=== PATIENT | male | born 1940 | race Caucasian/White ===

== ENCOUNTER 2017-06-23 01:20 | Inpatient (IN) | payer OTHER, MEDICARE ==
[~2017-06-23] VITALS: Ht 167.6 cm; Wt 78.5 kg
[~2017-06-23 01:20] MED LIST: ASPIRIN EC81 M1 PO; ATENOLOL50 M1 PO; ATORVASTATIN CA40 M1 PO; GABAPENTIN300 M2 PO; LOTREL 5-20 MG1 EACH PO; MORPHINE SULFAT30 M7 PO; TERAZOSIN HCL5 M1 PO
--- NOTE | 2017-06-23 11:40 | Admission Core Measures ---
Admission Meds I reviewed the following Meds: Current Medications Sig/Jayme Start time Last Medication Dose Stop Time Status Admin Amlodipine Besylate 5 MG DAILY 06/24 1000 UNVr (Norvasc) Aspirin Buffered 81 MG DAILY 06/23 1129 AC (Ecotrin) Atenolol 50 MG DAILY 06/24 1000 UNVr (Tenormin) Atorvastatin Calcium 40 MG DAILY 06/24 1000 UNVr (Lipitor) Doxazosin Mesylate 2 MG AT BEDTIME 06/23 2200 UNVr (Cardura) Gabapentin 300 MG AT BEDTIME 06/23 2200 UNVr (Neurontin) Morphine Sulfate 30 MG BID 06/24 1000 UNVr (Ms Contin) Acute Coronary Syndrome Inclusion Criteria ACS Diagnosis No Inpatient Core Measures LDL Reminder: If No, please order W/I first 24hr of stay Congestive Heart Failure Inclusion Criteria CHF Diagnosis No Cerebrovascular accident Inclusion Criteria CVA/TIA Diagnosis No Inpatient Core Measures Bedside Swallow Eval Reminder: If BSE failed, place ST order Antithrombotic Reminder: Order Antithrombotic Medication by end of day 2 Antithrombotic Reminder: Document Reason Antithrombotic Not ordered by end of day 2 AFIB/Flutter Reminder: If Present, add to problem list AFIB/Flutter Reminder: Order Anticoag Medication for pts with AFIB/Flutter Atherosclerosis Reminder: If Present, add to problem list LDL Reminder: If No, please order W/I first 24hr of stay PT Order Reminder: If No, please order Venous thromboembolism Inpatient Core Measures VTE Risk Factors: Age > 40, Surgery No [facility] VTE prophylaxis d/t No contraindications No VTE Pharm Prophylaxis d/t No contraindications Inclusion Criteria - Per Current guidelines, there needs to be overlap - treatment for the first 5 days of Warfarin therapy. - Parenteral Anticoagulation (IV or SC) needs to be - given along with Warfarin therapy. VTE Diagnosis No VTE Type NONE VTE Confirmed by (Test) NONE Problem List As ranked by this Provider includes Assessment & Plan 1. Carotid stenosis, right HOME MEDS Home Med List Amlodipine Besylate/Benazepril (Lotrel 5-20 MG Capsule) 5 MG-20 MG CAPSULE 1 CAP PO DAILY HTN (Reported) Aspirin (Ecotrin*) 81 MG TABLET.DR 1 TAB PO DAILY PROPHO (Reported) Atenolol 50 MG TABLET 1 TAB PO DAILY HTN (Reported) Atorvastatin Calcium 40 MG TABLET 1 TAB PO DAILY CJOLESTEROL (Reported) Gabapentin 300 MG CAPSULE 1 CAP PO NIGHTLY NEUROPATHY (Reported) Morphine Sulfate 30 MG TABLET 1 TAB PO DAILY NEUROPATHY (Reported) Terazosin HCl 5 MG CAPSULE 1 CAP PO QPM PROSTATE (Reported)
--- NOTE | 2017-06-23 11:42 | Operative Report ---
Operative/Inv Procedure Report Surgery Date: 06/23/17 Name of Procedure: Right carotid endarterectomy with bovine patch angioplasty Pre-Operative Diagnosis: Asymptomatic high grade JOSE Post-Operative Diagnosis: same Estimated Blood Loss: less than 50ml Surgeon/Maintenance And Repair Worker: RAFFI CANDELARIO,JESU HERMAN MD, HARVINDER (ASST.) Anesthesia: moderate sedation, block Complications: None Condition: Stable to PACU Operative Indication: High grade JOSE on right Operative/Procedure Note Note: Pt. brought to OR. Laid supine on table and time out performed. Incision made over anterior border of sternocleidomastoid after local and cervical block placed. Sharp dissection to carotid sheath. The ECA,CCA and ICA were all controlled and heaparin was given. Artery opened and plaque removed. Plaque noed to be friable. The plaque was tacked distally and proximally. The artery was then repaired with a running 6-0 prolene suture and a bovine pericardial patch. Occluding clamps removed. Bleeding controlled with prolene x 3. Gel foam and thrombin and flooseal plaved on artery. Wound closed in layers with skin greg for the skin. Pt. tolerated procedure well. Sponge, needle and instrument counts were correct. Pt. awake and intact throughout duration of procedure. Additional Comments: Please note a second surgeon state tested nursing assistant was required due to the lack of an adequate asssitant/resident and the comn\plexity of the repair.
--- NOTE | 2017-06-23 14:41 | NUR ---
RECIEVED PT FROM PACU AT 1255, A/O, MOVES ALL EXTREMTIES, PULSES X 4 DIMINISHED. PAIN 0/10. SB-SR 42-60, ASYMTOPATIC. NOTIFIED SURGICAL PA BRANDY SANCHEZ, BP 153/69 AUTO, 140/60 MANUALLY AND 161/65 VIA CRISTINA TO L WRIST. PT LUNGS SOUND CLEAR AND PT SATING 97-98% ON 2L. PT HAS SOFT ABDOMEN W +BS. -N/V. STARTED ON CLR LIQ DIET, TOLERATING WELL, NO DIFFICULTY SWELLING.PT HAS A DRESSING TO R SIDE OF NECK W ICE PACK AND DRESSING WITH MINIMAL BLOODY DRAINAGE. NS AT 75ML/HR RUNNING THROUGH PIV IN LAC #20. PT GIVEN ASP 81 MG PO. PT ORIENTED TO ROOM, CALL [facility] SYSTEM, POC WELL FAMILY PRESENT. PT VERBALIZES UNDERSTANDING AND OFFERS NO COMPLAINTS.
--- NOTE | 2017-06-23 14:44 | PN- Student ---
ANNA BRYANT 06/23/17 1406: Subjective Subjective: POST-OP DAY #0 Pt is a 76 y/o male who is POD #0 of a right carotid endarterectomy with bovine patch angioplasty on 06/23 who is doing well with minor complaints of pain, and minor numbess around incision site that is to be expected after administration of local anesthetic. He had an episode of bradycardia with a HR in the 40's post -operatively, but has since resolved. Pt denies any nausea, vomiting, or dizziness. He is tolerating a clear diet. An ice pack is resting on the incision site to prevent swelling and alleviate pain. - ambulation. - flatus. ROS Neuro: Denies any headaches or dizziness. HEENT: Denies any changes in vision, states that he is hard of hearing. Respiratory: Denies any shortness of breath or difficulty breathing. Cardiac: Denies any chest pain or palpitations. GI: Denies any abdominal pain or cramping, denies any N/V. 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 Objective Objective: Vital Signs Temperature: BP: 168/60 mmHg HR: 55 RR: 15 Pulse Oxometry: 98% on nasal cannula 2.0 L. General: Alert & oriented x3. He has an apropriate mood & affect. Neuro: Cranial nerves are intact and symmetrical. HEENT: Pupils are equal & reactive bilaterally. Trachea is midline and elevated with agglutination. Neck: Bandage on right anterior aspect of neck is is c/d/i with no erythema surrounding. Pt states minor numbness around his neck, but denies any pain. Full range of motion is noted on flexion, extension, and rotation with minor soreness but no pain. Respiratory: CABL. No wheezes, rhales, or ronchi. Cardiac: S1S1. Regular rate, normal rhythm, no murmurs, rubs, or gallops. No edema present. GI: Abdomen is soft, nontender, & nondistended. MSK: Plantarflexion and dorsiflexion strength is 5/5, with no posterior calf pain when palpated. Notes minor neuropathy on distal aspect of feet BL that was previously diagnosed before the procedure. Grant Manager strength is a 5/5 bilaterally. Assessment/Plan Assessment: This is a 76 year old man who is POD #0 of a right carotid endarterectomy with bovine patch angioplasty on 06/23/17 who is doing well with minor complaints of pain, and minor numbess around incision site that is to be expected after local anesthetic administration. Plan: - Follow HR & BP to address possible bradycardia after procedure. - Continue pain regimen. - Administer aspirin 325 mg for DVT prophylaxis. - Resume beta negrito pharmacotherapy from pre-operative medication list. - Advance diet as tolerated. - Promote use of incentive spirometer. - Promote ambulation. - Will discuss with Dr. Banda. LEILA GAN,JEYSON 06/23/17 1640: Objective Results Results: Microbiology 06/23 1300 UPPER RESP: Surveillance Culture - RECD 06/23 1300 GI: Surveillance Culture - RECD Resident Review Statement Other Findings: Agree w above student note. Pt without complaints. Denies pain/n/v/cp/sob/neurological deficits. Hungry. bradycardic to 40s (now low 60s) and hypertensive (190s, 200) postop. Did not take antihtn meds this am other than his BB PE: no focal neuro deficits. face symmetric without droop, moves all 4 extremities- strength 5/5 and equal bilaterally. gross sensate intact 4 extremities. no speech changes. incision intact, some erythema around dressing- likely due to ice pack on area. slightly ttp. minimal swelling. A/P: POD0 sp R CEA- with htn and bradycardia. -continue telemetry in icu - home dose lisinopril now. may need further meds if worsens. - hh diet as tolerated. - hl ivf. dc o2. - will harlan attending
[2017-06-23 16:00] VITALS: BP 170/80
--- NOTE | 2017-06-23 21:25 | NUR ---
PT'S AWAKE AND ALERT. NOW REPORTING SORENESS AT SURGICAL SITE AND GOING DOWN RIGHT SIDE OF HIS BACK. PATIENT STATES, "IT'S SORE. NOT PAINFUL". B/P REMAINS IN THE 170 TO 180 AREA. MD STATES TO IGNORE THE CRISTINA READINGS AND WATCH THE CUFF READINGS. CALL MD IF BP GOES OVER 200. PT HAS BEEN O ROOM AIR FOR 5 HOURS. DESATING WHEN SLEEPING. 2L/NC PLACED FOR SLEEP.
[2017-06-24] VITALS: BP 160/60
--- NOTE | 2017-06-24 00:15 | NUR ---
PT ALERT AND ORIENTED, DENIES PAIN. NSR 60'S, MANUAL BP 160/60. LEFT RADIAL CRISTINA IN PLACE. SATURATION ON 2L O2, 100%. LUNGD SOUND CLEAR. ABDOMEN SOFT, NORMOACTIVE BS. MOVING ALL HIS EXTREMETIES. RIGHT NECK DRESSING DRY AND INTACT.
--- NOTE | 2017-06-24 06:01 | PN- Vascular Surgery ---
Subjective Subjective: feeling well. some soreness at incision, though pain well controlled. no extremity weakness or speech changes. Denies pain/n/v/cp/sob. HR and BP improved Objective Vital Signs and I&Os Vital Signs HR: now 55, range 50s-60s postop BP: now 154/66, SBP range 230s-180s postop Date Time Temp Pulse Resp B/P B/P Pulse O2 O2 Flow FiO2 Mean Ox Delivery Rate 06/24 0400 100 Nasal 2.0L Cannula 06/24 0000 100 Nasal 2.0L Cannula 06/24 0000 97.2 61 20 160/60 100 Nasal 2.0L Cannula 06/23 1726 67.0 56 22 184/70 06/23 1600 100 Nasal 2.0L Cannula 06/23 1600 96.6 56 18 170/80 100 Nasal 2.0L Cannula 06/23 1316 98 Nasal 2.0L Cannula Intake & Output UO: 400/cage shift manager, 1300 evening shift 06/24 0800 06/24 0000 06/23 1600 06/23 0800 06/23 0000 06/22 1600 Intake Total 915 1360 Output Total 1300 400 Balance -385 960 Intake, IV 225 1000 Intake, Oral 690 360 Number 0 Bowel Movements Output, Urine 1300 400 Patient 173 lb Weight Weight Reported by Patient Measurement Method Physical Exam: GEN: NAD CARD: s1s2 RRR PULM: CTAB NEURO: no focal neuro deficits. face symmetric without droop, moves all 4 extremities- strength 5/5 and equal bilaterally. gross sensate intact 4 extremities. no speech changes. NECK: dressing mild serosang staining, otherwise intact, mild eccymosis, slightly ttp, minimal swelling. Assessment/Plan Assessment/Plan A: POD1 sp R CEA- with postop htn and bradycardia, improved, with minimal postop discomfort and no neurological deficits. P: - continue home meds - dc O2 - hh diet as tolerated. - dc planning - will dw attending Core Measures/Miscellaneous Venous Thromboembolism VTE Risk Factors: Surgery VTE Contraindications: No Contraindications VTE Diagnosis: No VTE Type: NONE VTE Confirmed by (Test): NONE Beta Fabiano Is Beta Fabiano a Home Med? Yes If Yes, Was This Ordered Today? Yes Antibiotics Is Patient on Antibiotics? No
--- NOTE | 2017-06-24 06:56 | Patient Discharge Instructions ---
Discharge Instructions General Discharge Information You were seen/treated for: Asymptomatic high grade JOSE You had these procedures: Right carotid endarterectomy with bovine patch angioplasty (06/23/17) Watch for these problems: fever>101.3, increased pain, redness/swelling/drainage Call Surgeon to remove: Iron Belt No bath, but you may shower: Yes Other wound care: ok to shower. keep incisions clean & dry. Diet Continue normal diet: Yes Recommended Diet: Heart Healthy Activity Full Activity/No Limits: Yes Activity Self Limited: Yes Pounds, do NOT lift more than: 10 Other activity limits: no heavy lifting. no strenuous activity. Acute Coronary Syndrome Inclusion Criteria At DC or during hospital stay patient has or had the following: ACS DIAGNOSIS No Discharge Core Measures Meds if any: Prescribed or Continued at Discharge Meds if any: NOT Prescribed or Continued at Discharge Congestive Heart Failure Inclusion Criteria At DC or during hospital stay patient has or had the following: CHF DIAGNOSIS No Discharge Core Measures Meds if any: Prescribed or Continued at Discharge Meds if any: NOT Prescribed or Continued at Discharge Cerebrovascular accident Inclusion Criteria At DC or during hospital stay patient has or had the following: CVA/TIA Diagnosis No Discharge Core Measures Meds if any: Prescribed or Continued at Discharge Meds if any: NOT Prescribed or Continued at Discharge Venous thromboembolism Inclusion Criteria VTE Diagnosis No VTE Type NONE VTE Confirmed by (Test) NONE Discharge Core Measures - Per Current guidelines, there needs to be overlap - treatment for the first 5 days of Warfarin therapy. - If discharged on Warfarin prior to 5 days of - overlap therapy, the patient will need to be - assessed for post discharge needs including - *Post discharge parental anticoagulation - *Warfarin and/or parental anticoagulation education - *Follow up date to check INR post discharge At least 5 days overlap therapy as Inpatient No Meds if any: Prescribed or Continued at Discharge Note: Overlap Therapy is Warfarin and Anticoagulant Meds if any: NOT Prescribed or Continued at Discharge
[2017-06-24] MEDS ORDERED: TYLENOL EXTRA500 M2 PO (07:35)
--- NOTE | 2017-06-24 07:42 | Surg Short-stay <48hrs Dis Sum ---
Visit Information Visit Dates Admission Date: 06/23/17 Discharge Date: 06/24/17 Surgical Short Stay DC Summary Admission Diagnosis: Asymptomatic high grade JOSE Final Diagnosis: same as above, s/p Surgery Date: 06/23/17 Name of Procedure: Right carotid endarterectomy with bovine patch angioplasty Procedure(s): Surgery Date: 06/23/17 Name of Procedure: Right carotid endarterectomy with bovine patch angioplasty Summary/Significant Findings: Electively scheduled right carotid endarterectomy with bovine patch angioplasty on 06/23/17 for asymptomatic high grade JOSE by , which went routinely. Monitored in ICU overnight for continue blood pressure monitoring via a-line. Mild bradycardia overnight, which was asymptomatic, and improved by the morning. Home blood pressure medications continued post-op day #1. Diet advanced as tolerated. Stable for discharge to home on post-op day#1. Condition at Discharge: stable Discharge Disposition: home or self care Discharge instructions provided to patient/family: Yes Post discharge follow-up plan: call to schedule follow up visit within one week of discharge with will need greg removed in 7-10 days
[2017-06-24 08:00] VITALS: BP 168/66
--- NOTE | 2017-06-24 09:03 | NUR ---
PT A/O, VS: 68 NSR 168/66 RA 97% 97.8. PEDERSON, PULSES x 4. NO NEURO DEFECITS NOTED. R NECK SURGICAL SITE HAS MINIMAL SWELLING, DRESSING C/D/I. PT REPORTS MINIMAL DISCOMFORT, DENYING NEED FOR PAIN MEDS. TOLERATING REGULAR DIET. CRISTINA ALEXANDRA'D PER SURGICAL PA. DC ORDER PLACED. TUBING MILL SETTER NOTIFIED.
[2017-06-24 09:36] VITALS: BP 150/73
--- NOTE | 2017-06-24 11:42 | NUR ---
A/O, VSS. ROOM AIR. AMBULATED UNIT W SUPERVISION. HR MAINTAINED IN 70S-80S, O2 SAT STABLE. BP AT 1100 - 110'S. TOLERATING PO. VOIDING QS. DC ORDER IN. CLARIFIED WITH NATHANAEL ROONEY THAT ALL INTERVENTIONS COMPLETE AND PT WAS OK TO DC HSC. SURGICAL DRESSING CHANGED. SURGICAL SITE LOOKS WNL, CLEAN AND DRY WITH KENN, NO REDDNES OR DRAINAGE, NO WARMTH, MINOR DISCOMFORT, PAIN < 3. PT STATES IS TOLERABLE. PIV'S X 2 DC'D. PT AND SIGNIFICANT OTHER EDUCATED ON DISCHARGE INSTRUCTIONS AND FOLLOW UP NEEDED FOR STAPLE REMOVEAL. PT ABLE TO DRESS HIMSELF AND WALK INDEPENDENTLY. PT DC'D VIA WHEELCHAIR TO LOBBY.
== END 2017-06-24 11:35 | DRG 39 ==
LOC: SDA 01:20 → CRI 01:20 → ENRESERV 11:58 → CRI 12:38 → ENTRNSPT 12:38 → EDTRNSPTSTS 12:43 → EDTRNSPT 12:43 → CMPTRNSPT 13:24 → CRI 06-24 11:35
PROVIDERS: ADMIT Surgery Vascular Surgery
PROC: 03CY0ZZ Extirpation of Matter from Upper Artery, Open Approach (ICD-10-PCS; principal; 2017-06-23)
PROC: 03UH0KZ Supplement Right Common Carotid Artery with Nonautologous Tissue Substitute, Open Approach (ICD-10-PCS; 2017-06-23)
DX: I65.21 Occlusion and stenosis of right carotid artery (principal); G62.9 Polyneuropathy, unspecified; R00.1 Bradycardia, unspecified; I10 Essential (primary) hypertension; Z85.72 Personal history of non-Hodgkin lymphomas; N40.0 Benign prostatic hyperplasia without lower urinary tract symptoms; I25.10 Atherosclerotic heart disease of native coronary artery without angina pectoris
CPT/HCPCS: CCU; C9399; J0131; J1644; J2405; J2550; J3490

== ENCOUNTER 2018-07-05 04:21 | Inpatient (IN) | payer OTHER, MEDICARE ==
[~2018-07-05] VITALS: Ht 167.6 cm; Wt 80.3 kg
[~2018-07-05 04:21] MED LIST changes: +TYLENOL EXTRA500 M2 PO
--- NOTE | 2018-07-05 05:06 | ED GI/GU/ABDOMINAL COMPLAINT ---
History of Present Illness General Chief Complaint: Abdominal Pain/Flank Pain Stated Complaint: "UPPER ABD PAIN SINCE 1999 YESTERDAY RADIATE BACK" Source: patient, family, old records Exam Limitations: no limitations Vital Signs & Intake/Output Vital Signs & Intake/Output Vital Signs Date Time Temp Pulse Resp B/P B/P Pulse O2 O2 Flow FiO2 Mean Ox Delivery Rate 07/05 0430 97.4 64 18 146/79 93 Room Air Allergies Coded Allergies: NO KNOWN ALLERGIES (08/31/12) Reconcile Medications Acetaminophen (Tylenol Extra Strength) 500 MG TABLET 1 TAB PO Q6-8P PRN pain control available over the counter Amlodipine Besylate/Benazepril (Lotrel 5-20 MG Capsule) 5 MG-20 MG CAPSULE 1 CAP PO DAILY HTN (Reported) Aspirin (Ecotrin*) 81 MG TABLET.DR 1 TAB PO DAILY PROPHO (Reported) Atenolol 50 MG TABLET 1 TAB PO DAILY HTN (Reported) Atorvastatin Calcium 40 MG TABLET 1 TAB PO DAILY CJOLESTEROL (Reported) Gabapentin 300 MG CAPSULE 1 CAP PO NIGHTLY NEUROPATHY (Reported) Morphine Sulfate 30 MG TABLET 1 TAB PO DAILY NEUROPATHY (Reported) Terazosin HCl 5 MG CAPSULE 1 CAP PO QPM PROSTATE (Reported) Triage Note: PT TO ED C/O SHARP PAIN ACROSS UPPER ABDOMEN FOR 7 HRS. STATES FELT THE SAME PAIN THE NIGHT BEFORE, FELT NAUSEUS, VOMITED AND FELT BETTER. "TONIGHT IT DIDN'T GO AWAY. PRODUCTIVE COUGH NOTED "I'VE BEEN COUGHING OFF AND ON FOR 8 MONTHS. IT RAN OUT OF MY COUGH MEDICINE AND IT'S COMING BACK AGAIN" DENIES NAUSEA, DENIES DIZZINESS, DENIES SOB. "I'VE NEVER HAD PAIN LIKE THIS" NOW" Triage Nurses Notes Reviewed? yes Onset: Yesterday Duration: day(s):, continues in ED, intermittent Timing: recent history Quality/Severity: moderate, sharpness, severe, vomiting Location: epigastric Radiation: back Activities at Onset: rest Prior Abdominal Problems: none Past Sexual History: Unobtainable at this time Modifying Factors: Worsens With: palpation. Associated Symptoms: abdominal pain, nausea/vomiting HPI: 1 day prior to admission patient complains of epigastric pain Sharp moderate severity improved after vomiting. 7 hours prior to admission patient complains of recurrent epigastric pain sharp severe radiating to his back with nausea. He also complains of chronic productive cough. He denies fever chills diarrhea chest pain cough shortness of breath headache dysuria rash bleeding. Past History Travel History Traveled to [place] past 21 day No Medical History Any Pertinent Medical History? see below for history Neurological: NEUROPATHY EENT: sinusitis, DRY EYES Cardiovascular: hypertension, hyperlipidemia Respiratory: pneumonia Psychiatric: anxiety Cancer(s): non-hodgkin lymphoma History of MRSA: No History of VRE: No History of CDIFF: No Influenza Vaccine: 09/14/07 Surgical History Surgical History: non-contributory, hernia repair-inguinal Psychosocial History Who do you live with Son Services at Home None What is your primary language Yi Tobacco Use: Quit >30 days ago ETOH Use: occasional use Illicit Drug Use: denies illicit drug use Family History Hx Contributory? No Review of Systems Review of Systems Constitutional: Reports: no symptoms. EENTM: Reports: no symptoms. Respiratory: Reports: see HPI, cough, sputum production. Cardiovascular: Reports: no symptoms. GI: Reports: see HPI, abdominal pain, nausea, vomiting. Genitourinary: Reports: no symptoms. Musculoskeletal: Reports: no symptoms. Skin: Reports: no symptoms. Neurological/Psychological: Reports: no symptoms. Hematologic/Endocrine: Reports: no symptoms. Immunologic/Allergic: Reports: no symptoms. All Other Systems: Reviewed and Negative Physical Exam Physical Exam General Appearance: well developed/nourished, alert, awake, anxious, moderate distress, obese Head: atraumatic, normal appearance Eyes: Bilateral: normal appearance, PERRL, EOMI, normal inspection. Ears, Nose, Throat, Mouth: hearing grossly normal, moist mucous membrane Neck: normal inspection, supple, full range of motion, normal alignment Respiratory: chest non-tender, no respiratory distress, quiet respiration, rales Cardiovascular: regular rate/rhythm, normal peripheral pulses, norml femoral pulses equa Peripheral Pulses: 4+ carotid (R), 4+ carotid (L) Gastrointestinal: normal bowel sounds, soft, no organomegaly, tenderness, hernia (umbilical) Male Genitals: normal genitalia Back: normal inspection, normal range of motion, no vertebral tenderness Extremities: normal range of motion, no ligament instability Neurologic/Psych: no motor/sensory deficits, awake, alert, oriented x 3, normal gait, normal mood/affect, cargoman II-XII nml as tested Skin: intact, normal color, warm/dry Core Measures ACS in differential dx? No Sepsis Present: No Sepsis Focused Exam Completed? No Progress Differential Diagnosis: biliary colic, cholecystitis, gastritis, peptic ulcer Plan of Care: Orders Procedure Date/time Status Regular Diet 07/05 B Active OXYGEN SETUP (GEN) 07/05 645 Active Saline Lock 07/05 645 Active Admit to inpatient 07/05 645 Active Vital Signs 07/05 645 Active Activity/Ambulation 07/05 645 Active Code Status 07/05 645 Active Add-on Test (ER Only) 07/05 604 Active BLOOD CULTURE 07/[address] ABD & PELVIS W IV CONTRAST 07/05 604 Active B-TYPE NATRIURETIC PEP (BNP) 07/05 453 Complete TROPONIN LEVEL 07/05 448 Complete LIPASE 07/05 448 Complete COMPREHENSIVE METABOLIC PANEL 07/05 448 Complete CBC WITHOUT DIFFERENTIAL 07/05 448 Complete EKG 07/05 424 Active Current Medications Sig/Jayme Start time Last Medication Dose Stop Time Status Admin Azithromycin 500 MG ONCE ONE 07/05 615 UNVr (Zithromax) 07/05 714 Sodium Chloride 250 ML (Normal Saline 0.9%) Ceftriaxone Sodium 1,000 MG ONCE ONE 07/05 615 UNVr (Rocephin) 07/05 616 Laboratory Tests 07/05/18 0453: Anion Gap 9, Estimated GFR > 60, BUN/Creatinine Ratio 18.9, Glucose 150 H, Calcium 8.6, Total Bilirubin 0.6, AST 19, ALT 32, Alkaline Phosphatase 62, Troponin I < 0.01, Vlw-N-Rustiapwxom Pept 2140 H, Total Protein 6.3, Albumin 3.5, Globulin 2.8, Albumin/Globulin Ratio 1.3, Lipase 39, CBC w Diff MAN DIFF ORDERED, RBC 4.90, MCV 86.8, MCH 29.0, MCHC 33.4, RDW 14.9 H, MPV 8.1, Gran % 91.1 H, Lymphocytes % 4.5 L, Monocytes % 3.4, Eosinophils % 0.9, Basophils % 0.1, Absolute Granulocytes 8.2 H, Segmented Neutrophils 90 H, Absolute Lymphocytes 0.4 L, Lymphocytes 6 L, Monocytes 4, Absolute Monocytes 0.3, Absolute Eosinophils 0.1, Absolute Basophils 0, Platelet Estimate ADEQUATE, Normochromic RBCs VERIFIED, Ovalocytes FEW, Fld Total RBCs Counted 100 Microbiology 07/05 604 BLOOD: Blood Culture - ORD 07/05 604 BLOOD: Blood Culture - ORD Diagnostic Imaging: Viewed by Me: Radiology Read, CT Scan. Discussed w/RAD: Radiology Read, CT Scan. Radiology Impression: 1. Pulmonary venous congestion. Diffuse interstitial opacities most likely correspond to interstitial edema. Diffuse atypical or viral infectious process could also have this appearance. 2. Low lung volumes bibasilar opacities most likely correspond to atelectasis. Superimposed airspace consolidation at the left lung base is also possible. Initial ED EKG: normal axis, normal intervals, normal p-waves, normal QRS complex, normal sinus rhythm, nonspecific ST T wave chg, PVCs Prior EKG: unchanged Rhythm Strip: normal sinus rhythm Hand-Off Endorsed To: Sonya CANDELARIO,Leroy Catalan Endorsed Time: 703 Pending: CT Departure Departure Time of Disposition: 604 Disposition: STILL A PATIENT Condition: Stable Clinical Impression Primary Impression: Pneumonia Referrals: Lindsey CANDELARIO,Brian Myles (PCP/Family) Departure Forms: Customer Survey General Discharge Information Admission Note Spoke With: Pablo CANDELARIO,Simeon Documentation of Exam: Documentation of any treatments & extenuating circumstances including Concerns Regarding Discharge (functional status, medication knowledge or non-compliance, living conditions, etc.) that warrant an admission rather than observation: IV antibiotics supplemental oxygen follow cultures serial lab exam medication adjustment follow up CT results continuing care discharge planning
[2018-07-05 05:08] LABS: ABSOLUTE BASOPHIL COUNT 0 /CUMM (0.0-0.2); ABSOLUTE EOSINOPHIL COUNT 0.1 /CUMM (0.0-0.7); ABSOLUTE GRANULOCYTE CT 8.2 /CUMM (1.4-6.5); ABSOLUTE LYMPH COUNT 0.4 /CUMM (1.2-3.4); ABSOLUTE MONOCYTE COUNT 0.3 /CUMM (0.10-0.60); BASOPHIL % 0.1 % (0.0-2.0); EOSINOPHIL % 0.9 % (0-5); GRANULOCYTE % 91.1 % (42.2-75.2); HEMATOCRIT 42.6 % (42-52); MEAN CORPUSCULAR HGB CONC 33.4 G/DL (33.0-37.0); MEAN CORPUSCULAR VOLUME 86.8 FL (80.0-94.0); MEAN PLATELET VOLUME 8.1 FL (7.4-10.4); PLATELET COUNT 126 /CUMM (130-400); RBC DISTRIBUTION WIDTH 14.9 % (11.5-14.5)
--- NOTE | 2018-07-05 05:57 | RADIOLOGY REPORT ---
EXAMINATION: XR PORTABLE CHEST CLINICAL INFORMATION: Cough. Rales, left greater than right. COMPARISON: CT dated 10/22/2017 and PET-CT dated 03/10/2018 TECHNIQUE: Portable frontal view of the chest was obtained. FINDINGS: Lung volumes are low. Atelectasis is present in the lung bases. Opacities in the left lung base may correspond to superimposed consolidation. Diffuse interstitial opacities are present bilaterally reflect pulmonary interstitial edema or multifocal infectious process. Cardiac silhouette is partially obscured by the elevated hemidiaphragms. Pulmonary venous congestion. Azygos fissure is again noted. No pneumothorax or pleural effusion. Osseous thorax is unremarkable. IMPRESSION: 1. Pulmonary venous congestion. Diffuse interstitial opacities most likely correspond to interstitial edema. Diffuse atypical or viral infectious process could also have this appearance. 2. Low lung volumes bibasilar opacities most likely correspond to atelectasis. Superimposed airspace consolidation at the left lung base is also possible.
--- NOTE | 2018-07-05 07:42 | CT SCAN REPORT ---
EXAMINATION: CT ABDOMEN AND PELVIS WITH CONTRAST CLINICAL INFORMATION: Epigastric pain radiating to back COMPARISON: October 22, 2017 TECHNIQUE: Multidetector volumetric imaging was performed of the abdomen and pelvis following IV administration of 95 mL of Optiray 320 intravenous contrast. Sagittal and coronal reformatted images were obtained on the technologist's workstation. DLP: 461.32 mGy-cm FINDINGS: LUNG BASES: There is some peripheral reticulation present consistent with some degree of chronic interstitial lung disease. There are a few pleural plaques seen lung bases 1 containing some calcification right lower lobe. Coronary artery calcific cases are seen. No pleural or pericardial effusion. LIVER, GALLBLADDER, AND BILIARY TREE: No hepatic masses identified. There is mild biliary ductal prominence but without definite dilatation. The gallbladder is distended. Gallbladder wall appears to be thickened to approximately 5 mm in diameter. There may be small amount of fluid seen within the wall adjacent to the liver. No cholelithiasis is appreciated. No pericholecystic fluid noted. No significant inflammatory stranding within adjacent fat. The common bile duct measures up to 8 mm in diameter with no definite radiopaque filling defect seen. PANCREAS: Unremarkable. No pancreatic mass or peripancreatic inflammatory change. SPLEEN: Unremarkable. Small splenule present. ADRENAL GLANDS: There is right adrenal gland calcification present. No adrenal gland masses seen. KIDNEYS AND URETERS: There is a 5.3 cm right upper pole cyst. There is a subcentimeter left renal upper pole cyst. Interpolar cortical scarring seen within the left kidney. No suspicious mass or hydronephrosis seen. No ureteral dilatation or calculi seen. BLADDER: Unremarkable. Decompressed. GASTROINTESTINAL TRACT: No dilated loops of large or small bowel are evident. There is diverticulosis of the sigmoid colon without evidence of acute diverticulitis. The appendix is visualized and appears unremarkable. ABDOMINAL WALL: No significant hernia is appreciated. LYMPH NODES: No lymphadenopathy appreciated. VASCULAR: There is a large amount calcified plaque present within the aortoiliac system with some degree of stenoses origin of the visceral vessels and renal arteries. There is a 2.6 cm infrarenal abdominal aortic aneurysm with some thrombus. No bowel wall thickening or inflammatory change identified. PELVIC VISCERA: No abnormal pelvic mass identified. No free fluid. OSSEOUS STRUCTURES: No suspicious destructive bony lesions identified. There is multilevel degenerative disc disease present with disc space narrowing and facet arthropathy. IMPRESSION: Distended gallbladder with wall thickening with question small amount fluid within the but without pericholecystic fluid or inflammatory change within the fat. This may represent developing acalculous cholecystitis. There is some mild intrahepatic bile duct prominence as well as prominence of the common bile duct. No radiopaque densities seen within the common bile duct and no definite pancreatic head mass is noted however distal bile duct stricture or nonradiopaque calculus not excluded. Renal cysts without evidence of obstructive uropathy. Prominent atherosclerotic disease within the aortoiliac system with possible significant visceral and renal artery origin stenoses. No definite secondary evidence of bowel ischemia.
--- NOTE | 2018-07-05 09:18 | History & Physical ---
Rae Patel MD 07/05/18 0917: General Information and HPI MD Statement: I have seen and personally examined BRADEN GOMEZ and documented this H&P. The patient is a 77 year old M who presented with a patient stated chief complaint of [abdominal pain]. Source of Information: patient, old records Exam Limitations: no limitations History of Present Illness: Patient is a 77-year-old male with past medical history of non-Hodgkin's lymphoma, hypertension, BPH, neuropathy, osteoarthritis, sinusitis presenting this admission with chief complaint of abdominal pain. Patient reports a 2 day history of upper abdominal pain characterized as a sharp pain located in the left upper quadrant and right upper quadrant which radiates to the back. Patient states that 2 days prior to this admission in the evening he experienced this pain which resolved after 1 episode of non--induced nonbloody emesis. Patient states the following night he experienced the same. However this time it did not subside and he came to the ED to seek further care. The patient denies any nausea or any additional episodes of emesis. Denies constipation/diarrhea. Patient reports that he ate fried calamari 2 nights ago and fried hamburger one night prior to admission. Patient states that he lives with his girlfriend who ate similar food and has not been sick. Patient denies any other sick contacts, recent travel, exposure to bug bites or tick bites. Patient has had no abdominal surgeries in the past. And has not experienced this type of pain in the past. The patient reports that he been having upper respiratory infections for the past few months. Notes that he has had at least 2 courses of antibiotics with the last being 3 weeks ago. Patient reports occasional productive cough with a white sputum. Patient denies any hemoptysis. Denies shortness of breath. Denies fever, chills. Patient reports that he has been having night sweats. States that he has a history of non-Hodgkin's lymphoma diagnosed in 2004 and is currently following with Dr. Read and goes to the [facility] for treatment. Patient also reports that he follows with Dr. Hewitt (ENT) for surveillance of the cancer every 6 months. Patient's PCP is Dr. Portillo. In the ED Patient received IV Tylenol 1, IV Pepcid 1, and 1 L normal saline bolus, ceftriaxone and azithromycin. Allergies/Medications Allergies: Coded Allergies: NO KNOWN ALLERGIES (10/01/12) Home Med list Acetaminophen (Tylenol Extra Strength) 500 MG TABLET 1 TAB PO Q6-8P PRN pain control available over the counter Amlodipine Besylate/Benazepril (Lotrel 5-20 MG Capsule) 5 MG-20 MG CAPSULE 1 CAP PO DAILY HTN (Reported) Aspirin (Ecotrin*) 81 MG TABLET.DR 1 TAB PO DAILY PROPHO (Reported) Atenolol 50 MG TABLET 1 TAB PO DAILY HTN (Reported) Atorvastatin Calcium 40 MG TABLET 1 TAB PO DAILY CJOLESTEROL (Reported) Gabapentin 300 MG CAPSULE 1 CAP PO NIGHTLY NEUROPATHY (Reported) Morphine Sulfate (Morphine Sulfate ER) 30 MG TABLET.ER 1 TAB PO D PRN PAIN SCALE 4-6 (MODERATE) (Reported) Terazosin HCl 5 MG CAPSULE 1 CAP PO QPM PROSTATE (Reported) Past History Travel History Traveled to [place] past 21 day No Medical History Neurological: NEUROPATHY EENT: sinusitis, DRY EYES Cardiovascular: hypertension, hyperlipidemia Respiratory: pneumonia Psychiatric: anxiety Cancer(s): non-hodgkin lymphoma History of MRSA: No History of VRE: No History of CDIFF: No Influenza Vaccine: 09/14/07 Surgical History Surgical History: non-contributory, hernia repair-inguinal Past Family/Social History Psychosocial History Services at Home: None ETOH Use: occasional use Illicit Drug Use: denies illicit drug use Sexual History Past Sexual History Unobtainable at this time Review of Systems Review of Systems Constitutional: Reports: see HPI. Denies: chills, fever, weakness. EENTM: Denies: no symptoms. Cardiovascular: Denies: no symptoms. Respiratory: Reports: cough, sputum production. Denies: hemoptysis, short of breath. GI: Reports: abdominal pain, vomiting. Denies: constipation, diarrhea, melena, nausea, bloody stool. Genitourinary: Reports: no symptoms. Musculoskeletal: Reports: no symptoms. Skin: Reports: no symptoms. Neurological/Psychological: Denies: paresthesia. Hematologic/Endocrine: Reports: no symptoms. Immunologic/Allergic: Reports: no symptoms. Exam & Diagnostic Data Last 24 Hrs of Vital Signs/I&O Vital Signs Date Time Temp Pulse Resp B/P B/P Pulse O2 O2 Flow FiO2 Mean Ox Delivery Rate 07/05 1514 98.5 92 20 160/74 96 Room Air 07/05 1406 Room Air 07/05 1000 98.2 72 16 150/74 98 Room Air / 0929 98.1 72 18 158/74 94 Room Air / 0759 94 Room Air / 0740 97.4 73 18 166/72 92 Room Air / 0430 97.4 64 18 146/79 93 Room Air Intake & Output 07/05 1600 08/ 0800 08/ 0000 Intake Total 1000 Output Total Balance 1000 Intake, IV 1000 Intake, Oral 0 Patient 177 lb 175 lb Weight Weight Bed scale Reported by Patient Measurement Method Physical Exam General Appearance Alert, Oriented X3, Cooperative, No Acute Distress Skin No Rashes Skin Temp/Moisture Exam: Warm/Dry HEENT Atraumatic, PERRLA, EOMI, Mucous Membr. moist/pink Cardiovascular Regular Rate, Normal S1, Normal S2, No Murmurs Lungs Clear to Auscultation, Normal Air Movement Abdomen Normal Bowel Sounds, Soft, No Hepatospenomegaly, No Masses, mildly tender in RUQ and LUQ Neurological Normal Speech, Strength at 5/5 X4 Ext, Normal Tone, Sensation Intact, Cranial Nerves 3-12 NL, Reflexes 2+ Extremities No Clubbing, No Cyanosis, No Edema, Normal Pulses, No Tenderness/ Swelling Last 24 Hrs of Labs/Rigoberto: Laboratory Tests 07/05/18 0453: Anion Gap 9, Estimated GFR > 60, BUN/Creatinine Ratio 18.9, Glucose 150 H, Calcium 8.6, Total Bilirubin 0.6, AST 19, ALT 32, Alkaline Phosphatase 62, Troponin I < 0.01, Uhg-P-Hcnpfsrkblp Pept 2140 H, Total Protein 6.3, Albumin 3.5, Globulin 2.8, Albumin/Globulin Ratio 1.3, Lipase 39, CBC w Diff MAN DIFF ORDERED, RBC 4.90, MCV 86.8, MCH 29.0, MCHC 33.4, RDW 14.9 H, MPV 8.1, Gran % 91.1 H, Lymphocytes % 4.5 L, Monocytes % 3.4, Eosinophils % 0.9, Basophils % 0.1, Absolute Granulocytes 8.2 H, Segmented Neutrophils 90 H, Absolute Lymphocytes 0.4 L, Lymphocytes 6 L, Monocytes 4, Absolute Monocytes 0.3, Absolute Eosinophils 0.1, Absolute Basophils 0, Platelet Estimate ADEQUATE, Normochromic RBCs VERIFIED, Ovalocytes FEW, Fld Total RBCs Counted 100 Microbiology 07/05 140 URINE ROUT: Legionella Antigen - COLB 07/05 140 URINE ROUT: Streptococcus pneumoniae Antigen (M - COLB 07/05 140 LOWER RESP: Respiratory Culture - COLB 07/05 140 LOWER RESP: Gram Stain - COLB 07/05 07 BLOOD: Blood Culture - RECD 07/05 710 BLOOD: Blood Culture - RECD Assessment/Plan Assessment: Patient is a 77-year-old male with past medical history of non-Hodgkin's lymphoma, sinusitis, recent history of multiple upper respiratory infections in the past 6 months presenting this admission with abdominal pain and chronic productive cough. Patient on admission: Vitals: MAXIMUM TEMPERATURE 97.4, heart rate 64-73, respiration rate 18, blood pressure 166/72, saturating between 92-94% on room air Labs: Significant for white blood cell count of 9 with 91.9% granulocytes, platelet count of 126, electrolytes, BUN/creatinine, LFTs within normal limits, glucose of 150, BNP 2140 Imaging: Chest x-ray: 1. Pulmonary venous congestion. Diffuse interstitial opacities most likely correspond to interstitial edema. Diffuse atypical or viral infectious process could also have this appearance. 2. Low lung volumes bibasilar opacities most likely correspond to atelectasis. Superimposed airspace consolidation at the left lung base is also possible. Abdominal CT and pelvis: Distended gallbladder with wall thickening with question small amount fluid within the but without pericholecystic fluid or inflammatory change within the fat. This may represent developing acalculous cholecystitis. There is some mild intrahepatic bile duct prominence as well as prominence of the common bile duct. No radiopaque densities seen within the common bile duct and no definite pancreatic head mass is noted however distal bile duct stricture or nonradiopaque calculus not excluded. Renal cysts without evidence of obstructive uropathy. Prominent atherosclerotic disease within the aortoiliac system with possible significant visceral and renal artery origin stenoses. No definite secondary evidence of bowel ischemia. Patient was admitted to the general medicine floor for management of followin. Community-acquired pneumonia in setting of immunosuppressive therapy 2. Acalculous cholecystitis 3. Abdominal pain likely secondary to above 4. Chronic conditions: Hypertension, hyperlipidemia, neuropathy, non-Hodgkin's lymphoma, BPH Plan: Admitted to general med Vitals every shift Follow-up CBC and BEP in a.m. Obtain sputum cultures Urine strep and Legionella Continue ceftriaxone and azithromycin IV daily Pain control with Tylenol and home dose of morphine for neuropathic pain Gen. surgery evaluation for acalculous cholecystitis We'll notify oncology of patient's admission Continue home medications DVT prophylaxis: Lovenox Diet: Regular Code: Full code As Ranked By This Provider Problem List: 1. Community acquired pneumonia 2. Acalculous cholecystitis Core Measures/Misc (08/17) Acute Coronary Syndrome ACS Diagnosis: No Congestive Heart Failure Congestive Heart Failure Diagnosis No Cerebrovascular Accident CVA/TIA Diagnosis: No VTE (View Protocol) VTE Risk Factors Age>40 No Mechanical VTE Prophylaxis d/t N/A MechProphylax Ordered No VTE Pharm Prophylaxis d/t NA PharmProphylax ordered Sepsis (View protocol) Sepsis Present: No If YES complete Sepsis Event Note If YES complete Sepsis Event Note Simeon Shah 07/05/18 1050: Core Measures/Misc (08/17) Sepsis (View protocol) If YES complete Sepsis Event Note If YES complete Sepsis Event Note Attending MD Review Statement Attending Statement Attending MD Statement: examined this patient, discuss w/resident/PA/H[employer]TING SALES ASSOCIATE, agreed w/resident/PA/[employer]TING SAL[employer]OCIATE, discussed with family, reviewed EMR data (avail), discussed with nursing, discussed with case mgmt, reviewed images, amended to note Attending Assessment/Plan: 77 o/m with pmh of hodgkin disease comes with atypical RUQ pain without nasuea, vomiting raditing to back. Patient had labs wbc 9, plt 126, LFTs wnl, BNP 2140. Imaging chestxray with congestion, low lung volumes. CT abd/pelvis with distended gall bladder and acalculous cholecystitis with possible pneumonitis viral/atypical in etiology. PLAN Patient admitted for possible community acquired pneumonia and acalculous cholecystitis. Continue with iv abx, blood cultures x 2, Urine legionella, strep. Sputum if you can obtain. Repeat chest xay in am. Monitor cbc. Inform oncology about admission. Consult general surgery. Diet. GI/dvt prophyalxis full code.
[2018-07-05 10:00] VITALS: BP 150/74
[2018-07-05] MEDS ORDERED: MORPHINE SULFAT30 M3 PO (11:52)
--- NOTE | 2018-07-05 12:05 | PN- Housestaff ---
Subjective Follow-up For: Acalculous cholecystitis, Abdominal pain Complaints: pain scale (0-10) (Abdominal pain) Objective Last 24 Hrs of Vital Signs/I&O Vital Signs Date Time Temp Pulse Resp B/P B/P Pulse O2 O2 Flow FiO2 Mean Ox Delivery Rate 07/05 0929 98.1 72 18 158/74 94 Room Air 07/05 0759 94 Room Air 07/05 0740 97.4 73 18 166/72 92 Room Air 07/05 0430 97.4 64 18 146/79 93 Room Air Intake & Output 07/05 1600 07/05 0800 07/05 0000 Intake Total 1000 Output Total Balance 1000 Intake, IV 1000 Intake, Oral 0 Patient 177 lb 175 lb Weight Weight Bed scale Reported by Patient Measurement Method
--- NOTE | 2018-07-05 14:30 | Cons- General Surgery ---
General Information and HPI Consulting Request Date of Consult: 07/05/18 Requested By: Pablo CANDELARIO,Simeon Reason for Consult: ?Cholecystitis Source of Information: patient History of Present Illness: 77-year-old male who presented to the emergency room overnight with epigastric/ lower chest pain at times radiating to the back. Patient states he had an episode of upper abdominal pain that radiated to his back on Friday night which improved after an episode of emesis. Last night patient says he got the same pain at the same time as the night prior but it did not get better so he came to the emergency room. At the time of the exam patient was sitting up in bed comfortable right after eating lunch. Currently he denies any abdominal pain/ nausea/vomiting. Patient does have non-Hodgkin's lymphoma which he gets yearly treatments for. Denies similar episodes in the past. Allergies/Medications Allergies: Coded Allergies: NO KNOWN ALLERGIES (08/31/12) Home Med List: Acetaminophen (Tylenol Extra Strength) 500 MG TABLET 1 TAB PO Q6-8P PRN pain control available over the counter Amlodipine Besylate/Benazepril (Lotrel 5-20 MG Capsule) 5 MG-20 MG CAPSULE 1 CAP PO DAILY HTN (Reported) Aspirin (Ecotrin*) 81 MG TABLET.DR 1 TAB PO DAILY PROPHO (Reported) Atenolol 50 MG TABLET 1 TAB PO DAILY HTN (Reported) Atorvastatin Calcium 40 MG TABLET 1 TAB PO DAILY CJOLESTEROL (Reported) Gabapentin 300 MG CAPSULE 1 CAP PO NIGHTLY NEUROPATHY (Reported) Morphine Sulfate (Morphine Sulfate ER) 30 MG TABLET.ER 1 TAB PO D PRN PAIN SCALE 4-6 (MODERATE) (Reported) Terazosin HCl 5 MG CAPSULE 1 CAP PO QPM PROSTATE (Reported) Current Medications: Current Medications Sig/Jayme Start time Last Medication Dose Route Stop Time Status Admin Acetaminophen 650 MG Q6P PRN 07/05 1245 AC PO Acetaminophen 1,000 MG Q6P PRN 07/05 1245 AC IV Acetaminophen 1,000 MG ONCE ONE 07/05 0500 DC 07/05 IV 07/05 0501 0505 Acetaminophen 0 .STK-MED ONE 07/05 0457 DC IV Azithromycin 500 MG DAILY 07/06 0900 AC Sodium Chloride 250 ML IV Azithromycin 500 MG ONCE ONE 07/05 0615 DC 07/05 Sodium Chloride 250 ML IV 07/05 07 0746 Ceftriaxone Sodium 1,000 MG DAILY 07/06 900 AC IV Ceftriaxone Sodium 0 .STK-MED ONE 07/05 0643 DC .ROUTE Ceftriaxone Sodium 1,000 MG ONCE ONE 07/05 615 DC 07/05 IV 07/05 616 0746 Enoxaparin Sodium 40 MG DAILY 07/06 900 AC SC Famotidine 20 MG ONCE ONE 07/05 0500 DC 07/05 IV 07/05 0501 0502 Famotidine 0 .STK-MED ONE 07/058 DC IV Metoclopramide HCl 5 MG ONCE ONE 07/05 050 DC 07/05 IV 07/05 0501 0502 Metoclopramide HCl 0 .STK-MED ONE 07/05 045 DC .ROUTE Morphine Sulfate 30 MG DAILY 07/05 1213 AC 07/05 PO 1222 Ondansetron HCl 4 MG Q8P PRN 07/05 1245 AC IV Sodium Chloride 1,000 ML BOLUS ONE 07/05 050 DC 07/05 IV 07/05 0559 0502 Past History Medical History Neurological: NEUROPATHY EENT: sinusitis, DRY EYES Cardiovascular: hypertension, hyperlipidemia Respiratory: pneumonia Psychiatric: anxiety Cancer(s): non-hodgkin lymphoma Surgical History Pertinent Surgical History: non-contributory, hernia repair-inguinal Psychosocial History Services at Home: None Smoking Status: Former Smoker ETOH Use: occasional use Illicit Drug Use: denies illicit drug use Review of Systems Review of Systems: All negative aside for the above-mentioned pertinent positives. Exam & Diagnostic Data Vital Signs and I&O Vital Signs Date Time Temp Pulse Resp B/P B/P Pulse O2 O2 Flow FiO2 Mean Ox Delivery Rate 07/05 1406 Room Air 07/05 1000 98.2 72 16 150/74 98 Room Air 07/05 0929 98.1 72 18 158/74 94 Room Air 07/05 0759 94 Room Air 07/05 0740 97.4 73 18 166/72 92 Room Air 07/05 0430 97.4 64 18 146/79 93 Room Air Intake & Output 07/05 1600 07/05 0000 07/04 1600 07/04 0000 Intake Total 1000 Output Total Balance 1000 Intake, IV 1000 Intake, Oral 0 Patient 177 lb 175 lb Weight Weight Bed scale Reported by Patient Measurement Method Physical Exam General Appearance: well developed/nourished, no apparent distress Head: atraumatic, normal appearance Eyes: Bilateral: normal appearance. Neck: supple Respiratory: rales Cardiovascular: regular rate/rhythm Gastrointestinal: soft, non-tender Back: normal range of motion Extremities: normal inspection, no edema Neurologic/Psych: awake, alert, oriented x 3, normal mood/affect Last 24 Hours of Labs: Laboratory Tests 07/05 0453 Chemistry Sodium (137 - 145 mmol/L) 137 Potassium (3.5 - 5.1 mmol/L) 3.8 Chloride (98 - 107 mmol/L) 102 Carbon Dioxide (22 - 30 mmol/L) 26 Anion Gap (5 - 16) 9 BUN (9 - 20 mg/dL) 17 Creatinine (0.7 - 1.2 mg/dL) 0.9 Estimated GFR (>60 ml/min) > 60 BUN/Creatinine Ratio (7 - 25 %) 18.9 Glucose (65 - 99 mg/dL) 150 H Calcium (8.4 - 10.2 mg/dL) 8.6 Total Bilirubin (0.2 - 1.3 mg/dL) 0.6 AST (17 - 59 U/L) 19 ALT (21 - 72 U/L) 32 Alkaline Phosphatase (< 127 U/L) 62 Troponin I (<0.11 ng/ml) < 0.01 Fko-[id number]-[id number] Pept (<125 pg/mL) 2140 H Total Protein (6.3 - 8.2 g/dL) 6.3 Albumin (3.5 - 5.0 g/dL) 3.5 Globulin (1.9 - 4.2 gm/dL) 2.8 Albumin/Globulin Ratio (1.1 - 2.2 %) 1.3 Lipase (23 - 300 U/L) 39 Hematology CBC w Diff MAN DIFF ORDERED WBC (4.8 - 10.8 /CUMM) 9.0 RBC (4.70 - 6.10 /CUMM) 4.90 Hgb (14.0 - 18.0 G/DL) 14.2 Hct (42 - 52 %) 42.6 MCV (80.0 - 94.0 FL) 86.8 MCH (27.0 - 31.0 PG) 29.0 MCHC (33.0 - 37.0 G/DL) 33.4 RDW (11.5 - 14.5 %) 14.9 H Plt Count (130 - 400 /CUMM) 126 L MPV (7.4 - 10.4 FL) 8.1 Gran % (42.2 - 75.2 %) 91.1 H Lymphocytes % (20.5 - 51.1 %) 4.5 L Monocytes % (1.7 - 9.3 %) 3.4 Eosinophils % (0 - 5 %) 0.9 Basophils % (0.0 - 2.0 %) 0.1 Absolute Granulocytes (1.4 - 6.5 /CUMM) 8.2 H Segmented Neutrophils (42.2 - 75.2 %) 90 H Absolute Lymphocytes (1.2 - 3.4 /CUMM) 0.4 L Lymphocytes (20.5 - 51.1 %) 6 L Monocytes (1.7 - 9.3 %) 4 Absolute Monocytes (0.10 - 0.60 /CUMM) 0.3 Absolute Eosinophils (0.0 - 0.7 /CUMM) 0.1 Absolute Basophils (0.0 - 0.2 /CUMM) 0 Platelet Estimate (ADEQUATE) ADEQUATE Normochromic RBCs VERIFIED Ovalocytes FEW Other Body Source Fld Total RBCs Counted (%) 100 Imaging Results: CT scan of the abdomen and pelvis shows a distended gallbladder with a questionably thickened wall, but without pericholecystic fluid or surrounding inflammatory changes. Chest x-ray shows bilateral opacities/edema Assessment/Plan Assessment/Plan 77-year-old male with upper abdominal pain, chest x-ray reveals bilateral infiltrates, questionable pneumonia. CT scan shows a distended gallbladder with a questionable cholecystitis. -Clinically at the present time patient does not appear to have signs and symptoms of cholecystitis -He is without pain and he denies any pain after eating a regular lunch -If any further questions or need further investigation a right upper quadrant ultrasound is in order -If patient continues to be asymptomatic no surgical intervention is warranted -Please reconsult as needed Consult Acknowledgment - Thank you for your consult request.
[2018-07-05 15:14] VITALS: BP 160/74
[2018-07-05 22:10] VITALS: BP 140/70
[2018-07-06 07:25] VITALS: BP 150/70
[2018-07-06 08:11] LABS: ABSOLUTE BASOPHIL COUNT 0 /CUMM (0.0-0.2); ABSOLUTE EOSINOPHIL COUNT 0.2 /CUMM (0.0-0.7); ABSOLUTE GRANULOCYTE CT 5.3 /CUMM (1.4-6.5); ABSOLUTE LYMPH COUNT 0.8 /CUMM (1.2-3.4); ABSOLUTE MONOCYTE COUNT 0.5 /CUMM (0.10-0.60); BASOPHIL % 0.3 % (0.0-2.0); EOSINOPHIL % 2.6 % (0-5); GRANULOCYTE % 78.8 % (42.2-75.2); HEMATOCRIT 40.1 % (42-52); MEAN CORPUSCULAR HGB 29.1 PG (27.0-31.0); MEAN CORPUSCULAR HGB CONC 33.6 G/DL (33.0-37.0); MEAN CORPUSCULAR VOLUME 86.6 FL (80.0-94.0); MEAN PLATELET VOLUME 8.5 FL (7.4-10.4); PLATELET COUNT 121 /CUMM (130-400); RBC DISTRIBUTION WIDTH 14.8 % (11.5-14.5); RED BLOOD CELL CT 4.63 /CUMM (4.70-6.10); WHITE BLOOD CELL COUNT 6.8 /CUMM (4.8-10.8)
--- NOTE | 2018-07-06 08:20 | PN- Housestaff ---
Elver Overton 07/06/18 0816: Subjective Follow-up For: Abdominal pain, productive cough Complaints: no complaints Subjective: Patient seen and examined on chair. No overnight event. He is enjoying his breakfast. Looking relax without any apparent discomfort. He denies shortness of breath, chest pain, palpitation, hemoptysis, abdominal pain, loose motion, constipation, burning duration, fever and chills. Review of Systems Constitutional: Reports: see HPI. EENTM: Denies: no symptoms. Objective Last 24 Hrs of Vital Signs/I&O Vital Signs Date Time Temp Pulse Resp B/P B/P Pulse O2 O2 Flow FiO2 Mean Ox Delivery Rate 07/06 0854 67 150/70 / 0854 67 150/70 / 0800 94 Room Air / 0725 97.3 67 20 150/70 94 Room Air 08/ 0000 Room Air / 2210 98.2 81 20 140/70 96 08/05 1843 98.5 92 20 160/74 08/05 1842 98.5 92 20 160/74 08/05 1514 98.5 92 20 160/74 96 Room Air 08/05 1406 Room Air Intake & Output / 1600 08/06 0800 08/06 0000 Intake Total 240 250 Output Total Balance 240 250 Intake, IV 0 10 Intake, Oral 240 240 Number 1 0 Bowel Movements Physical Exam General Appearance: Alert, Oriented X3, Cooperative, No Acute Distress Cardiovascular: Normal S1, Normal S2 Lungs: Clear to Auscultation, Normal Air Movement Assessment/Plan Assessment: 77-year-old male with past medical history of non-Hodgkin lymphoma, sinusitis, recently history of multiple upper respiratory tract infection for the last 6 month presented to emergency department complaint of abdominal pain and chronic productive cough. Examination there was no finding his chest was clear his bilateral normal air entry. His CVC was significant for white blood cell count of 9 with 91.9% granulocytes, platelet count of 126, serum electrolytes, blood urea nitrogen and creatinine, LFTs was normal. Although he has been no history of coronary artery disease but his previous BNP was raised it was 2140. X-ray show pulmonary venous congestion and interstitial opacities most likely having interstitial edema. Problems list: Community-acquired pneumonia Acalculous cholecystitis Non-Hodgkin's lymphoma Sinusitis Plan: Productive cough, leukocytosis and x-ray changes may be due to pneumonia. He is on IV ceftriaxone and azithromycin. We will follow in the labs and culture sensitivities. Continue antibiotics and and also doing of his chest x-ray and him and then will proceed accordingly. -Considering his raised previous BNP cardiac enzymes and echo is advised. We are looking for underlying cardiac pathology -For acalculous cholecystitis general surgery review done. They advised the patient is asymptomatic. Clinically he is having no sign of cholecystitis. Just observe the patient if he develops signs symptoms again revise consult. -Oncologist notified -GI/DVT prophylaxis -Advance healthy diet. -Follow-up with the culture and sensitivity and other reports. Problem List: 1. Community acquired pneumonia 2. Acalculous cholecystitis Pain Ratin Pain Location: N/A Pain Goal: Remain pain free Pain Plan: N/A Tomorrow's Labs & Rationales: N/A PabloSimeon johnson 07/06/18 1020: Attending MD Review Statement Attending Statement Attending MD Statement: examined this patient, discuss w/resident/PA/IMPLANT POLISHER, agreed w/resident/PA/IMPLANT POLISHER, discussed with family, reviewed EMR data (avail), discussed with nursing, discussed with case mgmt, reviewed images, amended to note Attending Assessment/Plan: 77 o/m with pmh of hodgkin disease comes with atypical RUQ pain raditing to back. Patient admitted for possible community acquired pneumonia and acalculous cholecystitis. Overnight feels better with no nausea and vomiting. Tolerating antibiotics. Continue with iv abx, Follow up blood cultures x 2, Urine legionella, strep. Repeat chest xay f/u today. ECHO with elevated bnp. Monitor cbc. Inform oncology about admission. Acalculous cholecystitis: general surgery consulted no acute intervention. regular Diet. GI/dvt prophyalxis full code.
--- NOTE | 2018-07-06 11:03 | PN- Student ---
Subjective Subjective: Hospital day 1: 77-year-old male with PMH of non-Hodgkin's lymphoma, sinusitis, BPH, neuropathy, HTN, HLD, recent history of mutiple respiratory infections in the past 6 months presented to ED with upper abdominal pain radiating to back for the past 2 days and chronic productive cough with white sputum. Patient was interviewed and examined at bed side. Patient seemed well, no acute distress and was enjoying his breakfast. Patient stated he was fine this morning , no overnight acute event; however, had cough with sputum. Patient denied SOB, chest pain, fever, chills, malaise, abdominal pain. Patient was fine moving around without assistance. Objective Objective: Physical exam: - Vitals signs are stable: T: 97.3 // P: 67 // RR: 20 // BP: 150/70 // SpO2: 94% room air. - Patient is oriented to Time, Person and Place, no acute distress and cooporative. - HEENT: NC/AT, PERRLA, EOMI, no pallor. - Cardiac: normal S1, S2 with no additional murmur nor gallop. - Lungs: CTA bilaterally - Abdomen: soft, non tender, no guarding, no rigidty. - Extremities: no peripheral edema. - Neuro: no tingling nor numbness on extremities, no depression, no anxiety. Labs: - CBC showed no leukocytosis (WBCs at 9 trending down to 6.8), granulocytes 91.9 % trending down to 78.8% - Chemistry: Glucose:150 and pro-BNP:2140 on admission. Imaging: -CXR showed pulmonary venous congestion, diffuse interstital opacities that corresponding to instertial edema, low volume suggested atelectasis and lower lung bases with consodilation. -CT abdomen/pelvic suggested acalculous cholecystitis. Results Results: Laboratory Tests 07/06/18 0630: Anion Gap 6, Estimated GFR > 60, BUN/Creatinine Ratio 17.0, CBC w Diff NO MAN DIFF REQ, RBC 4.63 L, MCV 86.6, MCH 29.1, MCHC 33.6, RDW 14.8 H, MPV 8.5, Gran % 78.8 H, Lymphocytes % 11.6 L, Monocytes % 6.7, Eosinophils % 2.6, Basophils % 0.3, Absolute Granulocytes 5.3, Absolute Lymphocytes 0.8 L, Absolute Monocytes 0.5, Absolute Eosinophils 0.2, Absolute Basophils 0 07/05/18 0453: Anion Gap 9, Estimated GFR > 60, BUN/Creatinine Ratio 18.9, Glucose 150 H, Calcium 8.6, Total Bilirubin 0.6, AST 19, ALT 32, Alkaline Phosphatase 62, Troponin I < 0.01, [id number] Pept 2140 H, Total Protein 6.3, Albumin 3.5, Globulin 2.8, Albumin/Globulin Ratio 1.3, Lipase 39, CBC w Diff MAN DIFF ORDERED, RBC 4.90, MCV 86.8, MCH 29.0, MCHC 33.4, RDW 14.9 H, MPV 8.1, Gran % 91.1 H, Lymphocytes % 4.5 L, Monocytes % 3.4, Eosinophils % 0.9, Basophils % 0.1, Absolute Granulocytes 8.2 H, Segmented Neutrophils 90 H, Absolute Lymphocytes 0.4 L, Lymphocytes 6 L, Monocytes 4, Absolute Monocytes 0.3, Absolute Eosinophils 0.1, Absolute Basophils 0, Platelet Estimate ADEQUATE, Normochromic RBCs VERIFIED, Ovalocytes FEW, Fld Total RBCs Counted 100 Microbiology 07/05 140 URINE ROUT: Legionella Antigen - COLB 07/05 140 URINE ROUT: Streptococcus pneumoniae Antigen (M - COLB 07/05 140 LOWER RESP: Respiratory Culture - COLB 07/05 140 LOWER RESP: Gram Stain - COLB 07/05 0735 BLOOD: Blood Culture - RECD 07/05 0710 BLOOD: Blood Culture - RECD Assessment/Plan Assessment: Summary: 77-year-old male with PMH of non-Hodgkin's lymphoma, sinusitis, BPH, neuropathy, HTN, HLD, recent history of mutiple respiratory infections in the past 6 months presented to ED with upper abdominal pain radiating to back for the past 2 days and chronic productive cough with white sputum. Labs showed high granulocytes with no leukocytosis, glucose 150 and pro BNP of 2140. CXR showed diffuse opacities, and CT abdomen suggested acalculous cholecystitis. Problem list: 1. CAP: patient had no fever, no leukocytosis; however CXR might suggest possible pneumonia. Further eval in process. 2. Acalculous cholycystitis: patient showed no signs and symptoms though CT abd suggested it. 3. Non-Hodgkin's lymphoma: pt is under care by his oncologist. 4. BPH. 5. Sinusitis 6. Hypertension 7. Hyperlipidemia 8. Neuropathy Plan: - Vitals per shift. - Follow up on CBC, BEP p.m - Repeat CXR today. - Follow up on urine culture for Legionella and Strep pneumo. - Follow up on sputum culture. - Continue Ceftriaxone IV 1g daily, and Azithromycin IV 500mg daily. - Order another Echo + 1 set of Troponin. - Follow up on surgery notes on acalculous cholecystitis, monitor if patient develops fever and RUQ pain. - Notify Dr. Espinoza-pt's oncologist for non-Hogkin's lymphoma regarding his admission. #DVT prophylaxis: Levonox #Regular diet. #Code status: full code.
[2018-07-06 14:03] VITALS: BP 150/74
--- NOTE | 2018-07-06 16:57 | RADIOLOGY REPORT ---
EXAMINATION: XR PORTABLE CHEST CLINICAL INFORMATION: Productive cough. Pneumonia suspected COMPARISON: PET/CT 03/10/2018 and chest x-ray 06/02/2012. CT abdomen pelvis 07/06/2018 TECHNIQUE: Portable frontal view of the chest was obtained. FINDINGS: Stable enlargement of the cardiac silhouette. Atherosclerotic disease of the aortic arch. Both lungs are adequately aerated. Interstitial markings are diffusely coarsened bilaterally. Mild peribronchial thickening centrally. No gross lobar consolidation. A small left pleural effusion cannot be excluded, however, one was not identified on yesterday's CT abdomen pelvis. Therefore, this likely represents atelectasis and scarring. IMPRESSION: Chronic interstitial changes without focal consolidation or gross pleural effusion.
[2018-07-06 21:47] VITALS: BP 120/64
[2018-07-07 06:20] VITALS: BP 148/64
[2018-07-07 08:27] VITALS: BP 122/78
--- NOTE | 2018-07-07 08:36 | PN- Housestaff ---
Elver Overton 07/07/18 0828: Subjective Follow-up For: Chronic productive cough, abdominal pain Complaints: chronic prouductive , weakness Subjective: Patient seen and examined at chair. He is enjoying his breakfast. There is no overnight event. He is complaining of a little bit weakness and chronic productive cough. He said he cannot walk due to neuropathy. He denies headache , shortness of breath, chest pain, palpitation, abdominal pain, loose motion, burning micturition, fever, chills. Review of Systems Constitutional: Reports: see HPI. Objective Last 24 Hrs of Vital Signs/I&O Vital Signs Date Time Temp Pulse Resp B/P B/P Pulse O2 O2 Flow FiO2 Mean Ox Delivery Rate 07/07 0620 98.2 63 18 148/64 91 Room Air 07/06 2147 98.3 68 18 120/64 94 Room Air 07/06 1600 Room Air 07/06 1403 97.6 68 20 150/74 94 Room Air 07/06 0854 67 150/70 07/06 0854 67 150/70 Intake & Output 07/07 1600 07/07 0800 07/07 0000 Intake Total 0 480 Output Total Balance 0 480 Intake, Oral 0 480 Number 0 Bowel Movements Physical Exam General Appearance: Oriented X3, Cooperative, No Acute Distress Cardiovascular: Regular Rate, Normal S1, Normal S2 Assessment/Plan Assessment: 77-year-old male with past medical history of non-Hodgkin lymphoma, sinusitis, recently history of multiple upper respiratory tract infection for the last 6 month presented to emergency department complaint of abdominal pain and chronic productive cough. Examination there was no finding his chest was clear his bilateral normal air entry. His CVC was significant for white blood cell count of 9000 with 91.9% granulocytes, platelet count of 126, serum electrolytes, blood urea nitrogen and creatinine, LFTs was normal. Although he has been no history of coronary artery disease but his previous BNP was raised it was 2140. X-ray show pulmonary venous congestion and interstitial opacities most likely having interstitial edema chronic bronchitis. Problems list /assessment/Plan/ -Chronic bronchitis. -Acalculous cholecystitis -Non-Hodgkin's lymphoma -Chronic sinusitis Fresh chest x-ray showed no new changes except chronic interstitial changes without focal consolidation or pleural effusion. Blood cultures showed no growth on second day. Her plan is to discharge and follow up with primary care physician. -His echo will be done on outpatient basis. --Oncologist notified -Advance healthy diet. -Follow-up with his PCP. Problem List: 1. Cholelithiasis and cholecystitis with obstruction Pain Ratin Pain Location: N/A Pain Goal: Remain pain free Pain Plan: N/A Tomorrow's Labs & Rationales: N/A Simeon Shah 07/07/18 1019: Attending MD Review Statement Attending Statement Attending MD Statement: examined this patient, discuss w/resident/PA/FROZEN FOOD DEPARTMENT MANAGER, agreed w/resident/PA/FROZEN FOOD DEPARTMENT MANAGER, discussed with family, reviewed EMR data (avail), discussed with nursing, discussed with case mgmt, reviewed images, amended to note Attending Assessment/Plan: 77 o/m with pmh of hodgkin disease comes with atypical RUQ pain raditing to back. Patient admitted for possible atypical pneumonia/bronchitis and acalculous cholecystitis. Denies any new complaints. Tolerating antibiotics. Finished azithromycin 500 x 3 days, Follow up blood cultures x 2 negative, Repeat chest xay without consolidation. ECHO as outpatient. elevtaed bnp without CHF signs Acalculous cholecystitis: general surgery consulted no acute intervention. Tolerates regular Diet. GI/dvt prophyalxis full code.
[2018-07-07 08:40] LABS: ABSOLUTE BASOPHIL COUNT 0 /CUMM (0.0-0.2); ABSOLUTE EOSINOPHIL COUNT 0.4 /CUMM (0.0-0.7); ABSOLUTE GRANULOCYTE CT 6.1 /CUMM (1.4-6.5); ABSOLUTE LYMPH COUNT 0.8 /CUMM (1.2-3.4); ABSOLUTE MONOCYTE COUNT 0.4 /CUMM (0.10-0.60); BASOPHIL % 0.2 % (0.0-2.0); EOSINOPHIL % 4.9 % (0-5); GRANULOCYTE % 78.8 % (42.2-75.2); HEMATOCRIT 42.3 % (42-52); MEAN CORPUSCULAR HGB 28.8 PG (27.0-31.0); MEAN CORPUSCULAR HGB CONC 33.7 G/DL (33.0-37.0); MEAN CORPUSCULAR VOLUME 85.5 FL (80.0-94.0); MEAN PLATELET VOLUME 8.2 FL (7.4-10.4); PLATELET COUNT 134 /CUMM (130-400); RBC DISTRIBUTION WIDTH 15.2 % (11.5-14.5); RED BLOOD CELL CT 4.94 /CUMM (4.70-6.10); WHITE BLOOD CELL COUNT 7.7 /CUMM (4.8-10.8)
--- NOTE | 2018-07-07 09:34 | Patient Discharge Instructions ---
Discharge Instructions General Discharge Information You were seen/treated for: Bronchitis/Pneumonia Special Instructions: follow up with your primary care within 1 week Please seek medical attention if you develop shortness of breath or fevers Acute Coronary Syndrome Inclusion Criteria At DC or during hospital stay patient has or had the following: ACS DIAGNOSIS No Discharge Core Measures Meds if any: Prescribed or Continued at Discharge Meds if any: NOT Prescribed or Continued at Discharge Congestive Heart Failure Inclusion Criteria At DC or during hospital stay patient has or had the following: CHF DIAGNOSIS No Discharge Core Measures Meds if any: Prescribed or Continued at Discharge Meds if any: NOT Prescribed or Continued at Discharge Cerebrovascular accident Inclusion Criteria At DC or during hospital stay patient has or had the following: CVA/TIA Diagnosis No Discharge Core Measures Meds if any: Prescribed or Continued at Discharge Meds if any: NOT Prescribed or Continued at Discharge Venous thromboembolism Inclusion Criteria VTE Diagnosis No VTE Type NONE VTE Confirmed by (Test) NONE Discharge Core Measures - Per Current guidelines, there needs to be overlap - treatment for the first 5 days of Warfarin therapy. - If discharged on Warfarin prior to 5 days of - overlap therapy, the patient will need to be - assessed for post discharge needs including - *Post discharge parental anticoagulation - *Warfarin and/or parental anticoagulation education - *Follow up date to check INR post discharge At least 5 days overlap therapy as Inpatient No Meds if any: Prescribed or Continued at Discharge Note: Overlap Therapy is Warfarin and Anticoagulant Meds if any: NOT Prescribed or Continued at Discharge
--- NOTE | 2018-07-07 10:05 | PN- Student ---
Corrina Espinoza 07/07/18 1004: Subjective Subjective: Hospital day 2: 77-year-old male with PMH of non-Hodgkin's lymphoma, sinusitis, BPH, neuropathy, HTN, HLD, recent history of mutiple respiratory infections in the past 6 months presented to ED with upper abdominal pain radiating to back for the past 2 days and chronic productive cough with white sputum. Patient was interviewed and examined at bed side. Patient was fine, no acute distress and was enjoying his breakfast. Patient stated he felt weak and coughed often. Patient denied SOB, chest pain, fever, chills, malaise, abdominal pain. No other acute overnight events. Objective Objective: Physical exam: Vitals signs are stable: T: 98.2F // P: 63 // RR:18 // BP: 148/64 // SpO2: 91% room air. - Patient is oriented, no acute distress and cooporative. - HEENT: NC/AT, PERRLA, EOMI, no pallor. - Cardiac: normal S1, S2 with no additional murmur nor gallop. - Lungs: CTA bilaterally - Abdomen: soft, non tender, no guarding, no rigidty. - Extremities: no peripheral edema. - Neuro: no tingling nor numbness on extremities, no depression, no anxiety. Labs: - CBC showed no leukocytosis, granulocytes 91.9% trending down to 78.8% - Chemistry: Glucose:150 and pro-BNP:2140 on admission. Imaging: -CXR showed pulmonary venous congestion, diffuse interstital opacities that corresponding to instertial edema, low volume suggested atelectasis and lower lung bases with consodilation. -Repeated CXR came back with no acute change, no gross pleural effusion and consolidation. -CT abdomen/pelvic suggested acalculous cholecystitis. Assessment/Plan Assessment: Summary: 77-year-old male with PMH of non-Hodgkin's lymphoma, sinusitis, BPH, neuropathy, HTN, HLD, recent history of mutiple respiratory infections in the past 6 months presented to ED with upper abdominal pain radiating to back for the past 2 days and chronic productive cough with white sputum. Repeated XCR showed no acute change, no gross pleural effusion nor consodilation, Labs showed no leukocytosis , pro-BNP 2140. PE was unremarkable except weakness and chronic productive cough. Problem list: 1. CAP: patient had no fever, no leukocytosis, repeated CXR was normal. possible r/o pneumonia 2. Acalculous cholycystitis: patient showed no signs and symptoms though CT abd suggested it. No surgery intervention because pt is asymptomatic. 3. Non-Hodgkin's lymphoma: pt is under care by his oncologist. 4. BPH. 5. Sinusitis 6. Hypertension 7. Hyperlipidemia 8. Neuropathy Plan: Plan to discharge patient this morning. - Patient go home with self care. - Have patient follow up his PCP. - Have patient follow up his Echo as outpatient. #DVT prophylaxis: Levonox #Regular diet. #Code status: full code.
== END 2018-07-07 11:48 | DRG 194 ==
LOC: ERH 04:21 → ERHI 06:45 → 2NA 06:45 → ENRESERV 08:42 → ENTRNSPT 09:46 → EDTRNSPT 09:52 → EDTRNSPTSTS 09:52 → 2NA 10:00 → CMPTRNSPT 10:10 → ENPENDDIS 07-07 09:38 → ENTRNSPT 07-07 11:30 → EDTRNSPTSTS 07-07 11:45 → EDTRNSPT 07-07 11:45 → 2NA 07-07 11:48 → CMPTRNSPT 07-07 11:58
PROVIDERS: Emergency Medicine; Student in an Organized Health Care Education/Training Program
DX: J18.9 Pneumonia, unspecified organism (principal); C85.90 Non-Hodgkin lymphoma, unspecified, unspecified site; N28.1 Cyst of kidney, acquired; J40 Bronchitis, not specified as acute or chronic; I10 Essential (primary) hypertension; E78.5 Hyperlipidemia, unspecified
CPT/HCPCS: 2NASP; 36592; 71045; 74177; 82436; 87040; 87070; 87449; 87450; 93005; 93010; 96365; 96375; J0131; J0456; J0696; J1650; J2405; J2765; J7040